=== PATIENT | female | born 1945 | race Caucasian/White ===

== ENCOUNTER → 2018-02-25 | Outpatient (CLI) | payer OTHER, MEDICARE ==
[~2018-02-25] MED LIST: ASPIRIN81 M2 PO; ATIVAN0.5 MG PO; ATORVASTATIN CA20 MG PO; CALCIUM 500 +1 EACH PO; DECADRON4 M1 PO; DOLOTRANZ 2.5%1 EACH TP; MEDROL32 MG PO; METOCLOPRAMIDE10 MG PO; MULTIVITAMIN1 EAC2 PO; ONDANSETRON HCL8 MG PO; PAROXETINE HCL40 MG PO; VESICARE5 MG PO; ZANTAC150 MG PO
== END | disposition home or self-care (01) ==
LOC: RAD 10:37 → EDSTATUS 11:00
PROC: 0WJG3ZZ Inspection of Peritoneal Cavity, Percutaneous Approach (ICD-10-PCS; principal; 2018-02-25)
DX: J90 Pleural effusion, not elsewhere classified (principal); C48.2 Malignant neoplasm of peritoneum, unspecified; Z53.09 Procedure and treatment not carried out because of other contraindication
CPT/HCPCS: 76604

== ENCOUNTER 2018-05-22 11:34 | Emergency (ER) | payer OTHER, MEDICARE ==
[~2018-05-22] VITALS: Ht 165.1 cm; Wt 71.6 kg
[2018-05-22 12:14] LABS: BASOPHIL COUNT 0.1 K/uL (0-0.1); EOSINOPHIL (%) 1.7 % (0-5); EOSINOPHIL COUNT 0.1 K/uL (0-0.3); HEMATOCRIT 31.9 % (36.0-46.0); HEMOGLOBIN 10.7 G/DL (11.9-15.5); IMMATURE GRANULOCYTE (%) 0.4 % (0.0-0.7); LYMPHOCYTE (%) 17.6 % (15-42); LYMPHOCYTE COUNT 0.9 K/uL (1.0-2.8); MCH 35.3 PG (29.0-34.0); MCHC 33.5 G/DL (30.0-36.0); MCV 105.3 FL (83-99); MONOCYTE (%) 14.3 % (3-12); MONOCYTE COUNT 0.7 K/uL (0-0.8); NEUTROPHIL COUNT 3.2 K/uL (1.8-6.4); PLATELET COUNT 70 K/uL (156-360); RBC DIS.WIDTH-SD 50.2 % (39-53); RED BLOOD COUNT 3.03 M/uL (3.80-5.20); WHITE BLOOD COUNT 4.8 K/uL (4.1-10.2)
[2018-05-22 12:23] LABS: PTT 25.7 SEC (25-37)
[2018-05-22 12:25] LABS: CHLORIDE 101 mEq/L (99-109); POTASSIUM 3.6 mEq/L (3.7-5.4); SODIUM 137 mEq/L (136-147)
[2018-05-22 12:27] LABS: GLUCOSE 98 mg/dL (70-99); TOTAL PROTEIN 6.1 g/dL (6.4-8.3)
[2018-05-22 12:29] LABS: TOTAL BILIRUBIN 0.6 mg/dL (0.0-1.0)
[2018-05-22 12:31] LABS: ALKALINE PHOSPHATASE 58 IU/L (3-129); CREATININE 0.8 mg/dL (0.6-1.3); GFR ESTIMATE (CALCULATED) > 59 mL/min/
[2018-05-22 12:32] LABS: UREA NITROGEN (BUN) 15 mg/dL (9-23)
[2018-05-22 12:33] LABS: AST (GOT) 31 IU/L (2-34); DIRECT BILIRUBIN 0.3 mg/dL (0.0-0.3)
[2018-05-22 12:34] LABS: ALT (GPT) 44 IU/L (3-49); LIPASE 17 U/L (1.0-51.0)
[2018-05-22 12:37] LABS: TROP-I INTERPRETATION NEGATIVE; TROPONIN-I < 0.01 ng/mL (0.0-0.30)
[2018-05-22 13:00] VITALS: BP 151/80
[2018-05-22 13:17] LABS: APPEARANCE CLEAR ((CLEAR)); BILIRUBIN NEGATIVE; BLOOD NEGATIVE; COLOR YELLOW ((YELLOW)); GLUCOSE (STRIP) NEGATIVE; KETONES NEGATIVE; LEUKOCYTES NEGATIVE; NITRITE NEGATIVE; PROTEIN (STRIP) NEGATIVE; UCUL ADDED? NO; UROBILINOGEN 0.2 MG/DL (0.2-1.0)
== END 2018-05-22 13:44 | disposition home or self-care (01) ==
LOC: EME 11:34
PROVIDERS: Emergency Medicine
DX: R42 Dizziness and giddiness (principal); F41.9 Anxiety disorder, unspecified; I25.2 Old myocardial infarction; Z92.21 Personal history of antineoplastic chemotherapy; Z85.3 Personal history of malignant neoplasm of breast; Z85.01 Personal history of malignant neoplasm of esophagus; Z90.13 Acquired absence of bilateral breasts and nipples; Z79.82 Long term (current) use of aspirin; Z88.5 Allergy status to narcotic agent; Z88.8 Allergy status to other drugs, medicaments and biological substances
CPT/HCPCS: 70450; 80048; 80076; 81003; 83605; 83690; 83880; 84484; 85025; 85610; 85730; 93005; 99281; 99283